=== PATIENT | female | born 1975 | race Caucasian/White ===

== ENCOUNTER 2024-09-28 12:05 | Inpatient (IN) ==
--- NOTE | 2024-09-28 12:22 | Emergency Department Note ---
HPI - General Adult General Chief complaint: General Complaint Stated complaint: EAR PAIN, TOOTHACHE, CHEST PAINX1 DAY Time Seen by Provider: 09/28/24 12:12 Source: patient Mode of arrival: walk-in Limitations: no limitations History of Present Illness HPI narrative: This is a 49 year old female patient that presents to the ER with c/o substernal chest tightness, dizziness, cough and lower tooth pain. Patient states she has been under a lot of stress at home. Patient describes her chest pain as tightness that is there constantly. Patient denies any SOB, back pain, abdominal pain, numbness, tingling, weakness or N/V/D Location: Reports chest Radiation: Reports non-radiation Severity: mild Quality: Reports other (tightness) Pain Consistency: Reports constant Relieving factors: Reports none Exacerbating factors: Reports none Associated symptoms: Reports chest pain and cough Treatments prior to arrival: Reports none Related Data Previous Rx's Medication Instructions Recorded azithromycin 250 mg tablet See Rx Instructions PO .COMPLEX 06/07/24 (Zithromax Z-Jair) sinusitis #6 tabs ondansetron 4 mg disintegrating 4 mg PO Q6H PRN nausea and 06/19/24 tablet vomiting #10 tabs tamsulosin 0.4 mg capsule (Flomax) 0.4 mg PO DAILY renal stone #30 06/19/24 caps Allergies Allergy/AdvReac Type Severity Reaction Status Date / Time codeine Allergy Mild Verified 09/28/24 12:16 iodine Allergy Mild Verified 09/28/24 12:16 povidone-iodine (From Allergy Mild Verified 09/28/24 12:16 Betadine) Review of Systems Status of ROS 10 or more systems reviewed and unremark able except as noted in history and below Constitutional Denies: fever, chills, change in weight, fatigue, malaise or night sweats Eyes Denies: change in vision, blurry vision, blind spots or light sensitivity Ears, nose, mouth, and throat Reports: mouth pain (lower tooth pain); Denies: throat pain, neck pain, throat swelling, difficulty swallowing or hoarseness Cardiovascular Reports: chest pain; Denies: palpitations, edema, swelling of feet/ankles, lightheadedness or shortness of breath with exertion Respiratory Denies: shortness of breath, cough, wheezing, stridor, pain on inspiration, change in phlegm color or coughing up blood Gastrointestinal Denies: abdominal pain, nausea, vomiting, coffee grounds in vomit, heartburn, diarrhea or constipation Genitourinary Denies: painful urination, urinary frequency, urinary urgency, urinary incontinence, blood in urine or difficulty voiding Musculoskeletal Denies: back pain, neck pain, extremity pain, extremity swelling, joint pain or limited range of motion Integumentary/Breast Denies: rash, itching, redness, skin pain, skin tenderness, skin swelling or sores Neurological Denies: headache, numbness in extremities, weakness in extremities, lack of coordination or dizziness Psychiatric Denies: anxiety, mood swings, panic attacks, change in sleep pattern, hopelessness or loss of interest Endocrine Denies: excessive urination, excessive thirst, fatigue, cold intolerance or excessive sweating Hematologic/Lymphatic Denies: easy bruising, easy bleeding or enlarged lymph nodes Allergic/Immunologic Denies: hives, throat swelling, tongue swelling or facial swelling PFSH PFSH Medical History (Updated 06/19/24 @ 22:00 by Josie Melara DO) Depression Hyperlipidemia Migraines Glaucoma Kidney stone GERD (gastroesophageal reflux disease) Surgical History (Updated 06/19/24 @ 19:39 by Concha Aly RN) H/O lithotripsy H/O: hysterectomy Social History Smoking status: current every day smoker What tobacco products do you use: cigarettes Cigarettes per day: 10 Within the past year, how often did you have a drink containing alcohol: monthly or less Within the past year, how often did you have six or more drinks on one occasion: never What is your current living situation: I presently have a place to live Problems where you live: no known problems In the past 12 months, utilities in danger of being shut off: no In past 12 months, lack of transportation kept you from medical appts, meetings, work, or getting things needed for daily living: No How hard is it for you to pay for the very basics like food, housing, medical care, and heating: hard Past 12 mos, fear food will run out before able to buy more: sometimes true In past 12 months, food didn't last until money to buy more: sometimes true Are you following a diet prescribed by a doctor: No Are you following a special diet: No Known occupational exposures/hazards: No Exam Constitutional: normal general appearance, no apparent distress and average body habitus Vital Signs - 24 hr 09/28/24 12:08 09/28/24 12:29 09/28/24 12:29 Temperature 97.4 F L Pulse Rate 93 H 86 94 H Respiratory Rate 20 Blood Pressure 109/64 94/67 100/71 Pulse Oximetry 96 Oxygen Delivery Me thod Room Air 09/28/24 12:30 Temperature Pulse Rate 95 H Respiratory Rate Blood Pressure 109/72 [facility]: normocephalic, head/scalp atraumatic, hearing grossly normal bilaterally, external ears normal, EACs normal, TMs normal bilaterally, nasal mucous membranes normal, external nose normal, oral mucous membranes normal, oropharynx normal and dentition abnormal (lower front tooth) (caries) Eyes: PERRL, EOMs intact bilaterally, conjunctivae normal and no scleral icterus Neck/C-Spine: visual inspection normal and trachea midline Lymph: no lymphadenopathy noted Chest: inspection of chest normal Respiratory: breath sounds equal bilaterally, normal respiratory effort, clear to auscultation bilaterally, no wheezes, no rales, no retractions, no use of accessory muscles and chest percussion normal Cardiovascular: normal heart rate noted, regular rhythm noted, no gallop, no rub, no murmur, no JVD, no clicks, peripheral pulses 2+ throughout and no additional abnormal heart sounds Gastrointestinal: abdomen normal to inspection, abdomen soft to palpation, nontender to palpation, nontender to percussion, nondistended, normoactive bowel sounds, no hepatosplenomegaly, no masses, no pulsatile mass, no ascites and no hernia Genitourinary: no CVA tenderness Back/Pelvis: spine normal to inspection Extremities: normal to inspection, normal to palpation, no tenderness, full ROM, no joint enlargement and no deformity Neurology: teacher counselor II-XII intact, no movement abnormality noted, no focal motor deficit noted, no sensory deficits noted, gait normal, speech normal, coordination normal, no pronator drift noted, no fasciculations noted and GCS normal Psychiatry: mental status grossly normal, oriented x3, thought process normal, cooperative and affect normal Skin: skin color normal and no rash Course Course Hospital Course: 1324: VSS, no s/s of acute distress noted, due to chest pain, risk factors, medical history will admit patient to the hospital Vital Signs Vital signs: Vital Signs Temperature 97.4 F L 09/28/24 12:08 Pulse Rate 93 H 09/28/24 12:08 Respiratory Rate 20 09/28/24 12:08 Blood Pressure 109/64 09/28/24 12:08 Pulse Oximetry 96 09/28/24 12:08 Oxygen Delivery Method Room Air 09/28/24 12:08 Temperature 97.4 F L 09/28/24 12:08 Pulse Rate 95 H 09/28/24 12:30 Respiratory Rate 20 09/28/24 12:08 Blood Pressure 109/72 09/28/24 12:30 Pulse Oximetry 96 09/28/24 12:08 Oxygen Delivery Method Room Air 09/28/24 12:08 Medical Decision Making Differential Diagnosis Differential Diagnosis: viral illness Medical Records Medical records reviewed: Yes I reviewed the patient's medical records Lab Data Lab results reviewed: Yes I reviewed the patient's lab results Labs: Lab Results 09/28/24 Range/Units 12:25 WBC 6.2 (4.3-9.3) K/uL RBC 4.9 (4.00-5.50) M/uL Hgb 15.4 (12.5-15.8) gm/dL Hct 44.6 (35.9-46.7) % MCV 90.6 (81.0-93.7) fl MCH 31.2 (27.6-32.2) pg MCHC 34.5 (33.1-35.3) g/dl RDW 12.4 (11.4-14.2) % Plt Count 276 (152-353) K/uL MPV 7.6 (6.9-10.8) fl Gran % 57.3 (47.8-71.3) % Lymph % (Auto) 34.9 (20.0-43.0) % [place] % (Auto) 5.7 (3.6-9.8) % Eos % (Auto) 1.5 (0.4-2.8) % Baso % (Auto) 0.6 (0.1-0.85) Lymph # (Auto) 2.2 (1.1-3.1) [place] # (Auto) 0.4 L (1.1-3.1) Eos # (Auto) 0.1 (0.0-0.2) Baso # (Auto) 0.0 (0.0-0.1) Absolute Gran (auto) 3.6 (2.3-6.0) Sodium 137 (136-145) mmol/L Potassium 3.8 (3.6-5.2) mmol/L Chloride 103.0 (98-107) mmol/L Carbon Dioxide 25 (21-32) mmol/L Anion Gap 9.0 (4-14) mEq/L BUN 13 (7-18) mg/dL Creatinine 0.8 (0.6-1.3) mg/dL Estimated GFR 90.3 (>59.9) Glucose 111 H (70-110) mg/dL Calcium 9.4 (8.5-10.1) mg/dL Total Bilirubin 0.34 (0.0-1.0) mg/dL AST 12 L (15-37) U/L ALT 9 L (30-65) U/L Alkaline Phosphatase 100 (50-136) U/L Troponin I High Sens <4.00 L (4.0-60.4) ng/L Total Protein 7.3 (6.4-8.2) g/dL Albumin 3.5 (3.4-5.0) g/dL Influenza Type A Ag Negative (Negative) Influenza Type B Ag Negative (Negative) Imaging Data Chest x-ray: Attestation: I have reviewed the pertinent imaging results. ECG Data Attestation: I have reviewed the pertinent ECG results. Discharge Plan Discharge Patient Disposition: Admitted As Inpatient Condition: Stable Chief Complaint: General Complaint Clinical Impression: Pneumonia, Chest pain Prescriptions: No Action azithromycin [Zithromax Z-Jair] 250 mg tablet See Rx Instructions .ROUTE .COMPLEX Qty: 6 0RF Rx Instructions: For 250 mg dose pack: take 500 mg today (day 1), then 250 mg for 4 days (days 2-5) tamsulosin [Flomax] 0.4 mg capsule 0.4 mg PO DAILY Qty: 30 0RF ondansetron 4 mg tablet,disintegrating 4 mg PO Q6H PRN (Reason: nausea and vomiting) Qty: 10 0RF Print Language: Bulgarian Referrals: Darshana Melo [Primary Care Provider] - Time of Disposition: 13:26
[2024-09-28 12:31] LABS: Basophils%(Percent) Auto 0.6 (0.1-0.85); Eosinophils#(Absolute)Auto 0.1 (0.0-0.2); Eosinophils%(Percent) Auto 1.5 % (0.4-2.8); Granulocytes % - Auto 57.3 % (47.8-71.3); Granulocytes#(Absolute)- Auto 3.6 (2.3-6.0); Hematocrit 44.6 % (35.9-46.7); Mean Corpuscular Volume 90.6 fl (81.0-93.7); Monocytes #(Absolute)- Auto 0.4 (1.1-3.1); Monocytes %(Percent)- Auto 5.7 % (3.6-9.8); Platelet Count 276 K/uL (152-353); White Blood Count 6.2 K/uL (4.3-9.3)
[2024-09-28 12:39] LABS: Potassium 3.8 mmol/L (3.6-5.2)
[2024-09-28] MEDS ORDERED: 0.9 % SODIUM CHLORIDE MB+ 50 ML IV ONE (13:20)
[2024-09-28] MEDS ORDERED: CEFTRIAXONE SODIUM 1 GM VIAL ONE (13:21)
[2024-09-28] MEDS ORDERED: ASPIRIN 81 MG TAB.CHEW ONE (13:21)
[2024-09-28] MEDS ORDERED: 0.9 % SODIUM CHLORIDE 250 ML IV ONE (13:21)
[2024-09-28] MEDS ORDERED: AZITHROMYCIN 500 MG VIAL ONE (13:21)
[2024-09-28] MEDS: CEFTRIAXONE SODIUM 1 GM in 0.9 % SODIUM CHLORIDE MB+ 50 ML IV STA (13:22)
[2024-09-28] MEDS: ASPIRIN 81 MG TAB.CHEW PO ONE (13:22)
[2024-09-28] MEDS: AZITHROMYCIN 500 MG 500 MG in 0.9 % SODIUM CHLORIDE 250 ML IV ONE (13:22)
[2024-09-28] MEDS: 0.9 % SODIUM CHLORIDE 1000 ML 1,000 ML IV STA (13:35)
[2024-09-28] MEDS ORDERED: ACETAMINOPHEN 500 MG TABLET PO PRN (16:05)
[2024-09-28] MEDS ORDERED: MAGNESIUM, ALUMINUM HYDROXIDE 30 ML ORAL.SUSP PO PRN (16:05)
[2024-09-28] MEDS ORDERED: bisacodyL 10 MG SUPP.RECT PR PRN (16:05)
[2024-09-28] MEDS: 0.9 % SODIUM CHLORIDE 1000 ML 1,000 ML IV SCH (17:06)
[2024-09-28] MEDS: KETOROLAC 30 MG/ML INJ VIAL IVP PRN (17:50)
[2024-09-28] MEDS: LEVOFLOXACIN/D5W 750 MG/150 ML 750 MG/150 ML PIGGYBACK IV SCH (17:51)
[2024-09-28] MEDS: METHYLPREDNISOLONE SOD SUCC/PF 125 MG/2 ML VIAL IVP ONE (17:51)
[2024-09-28] MEDS: IPRATROPIUM/ALBUTEROL SULFATE 3 ML AMPUL.NEB INH SCH (19:35)
[2024-09-29 06:04] LABS: Basophils%(Percent) Auto 0.2 (0.1-0.85); Granulocytes % - Auto 74.3 % (47.8-71.3); Granulocytes#(Absolute)- Auto 3.1 (2.3-6.0); Hematocrit 40.8 % (35.9-46.7); Mean Corpuscular Volume 90.5 fl (81.0-93.7); Monocytes #(Absolute)- Auto 0.3 (1.1-3.1); Monocytes %(Percent)- Auto 6.4 % (3.6-9.8); Platelet Count 264 K/uL (152-353); White Blood Count 4.2 K/uL (4.3-9.3)
[2024-09-29 06:16] LABS: Potassium 3.7 mmol/L (3.6-5.2)
--- NOTE | 2024-09-29 07:46 | Discharge Summary ---
DS: Providers Provider Date of admission: 09/28/24 13:52 Primary care physician: Darshana Melo Admitting clinician: Ewa Dao Attending physician on admission: Darío Owens Attending physician on discharge: Darío Owens Discharging clinician: Darío Owens Anticipated date of discharge: 09/29/24 DS: Summary Hospital Course Hospital Course: 1324: VSS, no s/s of acute distress noted, due to chest pain, risk factors, medical history will admit patient to the hospital Time Spent with Patient Time attestation: Total time spent providing and/or coordinating discharge services: Exam Constitutional: Vital Signs - 24 hr 09/28/24 12:08 09/28/24 12:29 09/28/24 12:29 Temperature 97.4 F L Pulse Rate 93 H 86 94 H Pulse Rate [Left] Respiratory Rate 20 Blood Pressure 109/64 94/67 100/71 Blood Pressure [Le ft Arm] Pulse Oximetry 96 [facility] 09/28/24 12:30 09/28/24 13:30 09/28/24 14:00 Temperature 99.4 F Pulse Rate 95 H 81 78 Pulse Rate [Left] Respiratory Rate 18 Blood Pressure 109/72 92/60 94/61 Blood Pressure [Le ft Arm] Pulse Oximetry 93 L [facility] 09/28/24 14:30 09/28/24 15:00 09/28/24 15:30 Temperature Pulse Rate 86 89 87 Pulse Rate [Left] Respiratory Rate Blood Pressure 94/62 96/66 99/68 Blood Pressure [Le ft Arm] Pulse Oximetry [facility] 09/28/24 15:45 09/28/24 16:05 09/28/24 16:06 Temperature 98.2 F Pulse Rate 87 Pulse Rate [Left] 71 71 Respiratory Rate 20 20 Blood Pressure 99/68 Blood Pressure [Le ft Arm] 105/76 Pulse Oximetry 98 98 [facility] Room Air 09/28/24 19:39 09/28/24 20:00 09/28/24 23:50 Temperature 97.8 F Pulse Rate Pulse Rate [Left] 88 Respiratory Rate 17 Blood Pressure Blood Pressure [Le ft Arm] 111/73 Pulse Oximetry 98 97 96 [facility] 09/28/24 23:56 09/29/24 04:00 Temperature 98.0 F 97.5 F L Pulse Rate Pulse Rate [Left] 91 H 91 H Respiratory Rate 19 18 Blood Pressure Blood Pressure [Le ft Arm] 114/71 107/68 Pulse Oximetry 94 L 96 Oxygen Delivery Me thod Room Air Room Air DS: Data Data Completed and Pending Labs on day of discharge: Labs from last 24 hours 09/29/24 09/28/24 05:28 12:25 WBC 4.2 L 6.2 RBC 4.5 4.9 Hgb 14.0 15.4 Hct 40.8 44.6 MCV 90.5 90.6 MCH 31.1 31.2 MCHC 34.3 34.5 RDW 12.4 12.4 Plt Count 264 276 MPV 8.0 7.6 Gran % 74.3 H 57.3 Lymph % (Auto) 19.1 L 34.9 [place] % (Auto) 6.4 5.7 Eos % (Auto) 0.0 L 1.5 Baso % (Auto) 0.2 0.6 Lymph # (Auto) 0.8 L 2.2 [place] # (Auto) 0.3 L 0.4 L Eos # (Auto) 0.0 0.1 Baso # (Auto) 0.0 0.0 Absolute Gran (auto) 3.1 3.6 Sodium 141 137 Potassium 3.7 3.8 Chloride 109.0 H 103.0 Carbon Dioxide 21 25 Anion Gap 11.0 9.0 BUN 11 13 Creatinine 0.7 0.8 Estimated GFR 106.0 90.3 Glucose 160 H 111 H Calcium 8.8 9.4 Total Bilirubin 0.16 0.34 AST 12 L 12 L ALT 10 L 9 L Alkaline Phosphatase 86 100 Troponin I High Sens <4.00 L Total Protein 6.5 7.3 Albumin 3.0 L 3.5 Influenza Type A Ag Negative Influenza Type B Ag Negative Discharge Plan Discharge Disposition: Left Against Medical Advice Condition: Stable Hospital Course: 1324: VSS, no s/s of acute distress noted, due to chest pain, risk factors, medical history will admit patient to the hospital Interventions: MED/SURG & ICU Observation Charge Sheet Last Done: 09/29/24 05:50 Discharge Date/Time: 09/29/24 11:44
[2024-09-29 08:25] VITALS: BP 122/71; PULSE 70; RESP 20; TEMP 98
[2024-09-29] MEDS ORDERED: CEFTRIAXONE SODIUM 1 GM in 0.9 % SODIUM CHLORIDE MB+ 50 ML IV SCH (09:00)
[2024-09-29] MEDS ORDERED: AZITHROMYCIN 500 MG 500 MG in 0.9 % SODIUM CHLORIDE 250 ML IV SCH (09:00)
--- NOTE | 2024-09-29 13:44 | Short Stay Summary ---
H&P: HPI History of Present Illness Chief complaint: chest pain, pneumonia Narrative: Pt to ER with worsening CP. Reports CP started suddenly, but has been having chest congestion and cough for ~2 weeks. Does smoke daily. ER work-up negative for cardiac findings, but CXR consistent with b/l CAP. Did meet sepsis criteria with tachy/tachy and CAP. Review of Systems Status of ROS 10 or more systems reviewed and unremark able except as noted in history and below Constitutional Denies: fever, chills, change in weight, fatigue, malaise or night sweats Eyes Denies: change in vision, blurry vision, blind spots or light sensitivity Ears, nose, mouth, and throat Reports: mouth pain (lower tooth pain); Denies: throat pain, neck pain, throat swelling, difficulty swallowing or hoarseness Cardiovascular Reports: chest pain; Denies: palpitations, edema, swelling of feet/ankles, lightheadedness or shortness of breath with exertion Respiratory Denies: shortness of breath, cough, wheezing, stridor, pain on inspiration, change in phlegm color or coughing up blood Gastrointestinal Denies: abdominal pain, nausea, vomiting, coffee grounds in vomit, heartburn, diarrhea, constipation or difficulty swallowing Genitourinary Denies: painful urination, urinary frequency, urinary urgency, urinary incontinence, blood in urine or difficulty voiding Musculoskeletal Denies: back pain, neck pain, extremity pain, extremity swelling, joint pain or limited range of motion Integumentary/Breast Denies: rash, itching, redness, skin pain, skin tenderness, skin swelling or sores Neurological Denies: headache, numbness in extremities, weakness in extremities, lack of coordination or dizziness Psychiatric Denies: anxiety, mood swings, panic attacks, change in sleep pattern, hopelessness or loss of interest Endocrine Denies: excessive urination, excessive thirst, fatigue, cold intolerance or excessive sweating Hematologic/Lymphatic Denies: easy bruising, easy bleeding or enlarged lymph nodes Allergic/Immunologic Denies: hives, throat swelling, tongue swelling, facial swelling or wheezing [facility] Medical History (Updated 09/29/24 @ 13:46 by Darío Owens MD) Depression Hyperlipidemia Migraines Glaucoma Kidney stone GERD (gastroesophageal reflux disease) Surgical History (Updated 06/19/24 @ 19:39 by Concha Aly RN) H/O lithotripsy H/O: hysterectomy Social History Smoking status: current every day smoker What tobacco products do you use: cigarettes Cigarettes per day: 10 Within the past year, how often did you have a drink containing alcohol: monthly or less Within the past year, how often did you have six or more drinks on one occasion: never What is your current living situation: I presently have a place to live Problems where you live: no known problems In the past 12 months, utilities in danger of being shut off: no In past 12 months, lack of transportation kept you from medical appts, meetings, work, or getting things needed for daily living: No How hard is it for you to pay for the very basics like food, housing, medical care, and heating: hard Past 12 mos, fear food will run out before able to buy more: sometimes true In past 12 months, food didn't last until money to buy more: sometimes true Are you following a diet prescribed by a doctor: No Are you following a special diet: No Known occupational exposures/hazards: No Highest level of school completed/degree received: decline to answer Meds Home Medications and Allergies Home Medications Medication Instructions Recorded Confirmed Type bimatoprost 0.01 % eye drops 1 drp ophthalmic (eye) BEDTIME 09/29/24 09/29/24 History (Esteban) pantoprazole 20 mg tablet,delayed 20 mg PO DAILY 09/29/24 09/29/24 History release simvastatin 40 mg tablet 40 mg PO BEDTIME 09/29/24 09/29/24 History sumatriptan succinate 25 mg tablet 25 mg PO Q2H PRN migraine headache 09/29/24 09/29/24 History topiramate 100 mg tablet 150 mg PO BID 09/29/24 09/29/24 History venlafaxine 75 mg capsule,extended 75 mg PO DAILY 09/29/24 09/29/24 History release 24 hr Allergies Allergy/AdvReac Type Severity Reaction Status Date / Time codeine Allergy Mild Verified 09/28/24 12:16 iodine Allergy Mild Verified 09/28/24 12:16 povidone-iodine (From Allergy Mild Verified 09/28/24 12:16 Betadine) adhesive tape AdvReac Unknown Verified 09/28/24 17:44 Exam Constitutional: abnormal general appearance (appears older than stated age), no apparent distress, average body habitus, no limitations and alert Vital Signs - 24 hr 09/28/24 14:00 09/28/24 14:30 09/28/24 15:00 Temperature Pulse Rate 78 86 89 Pulse Rate [Left] Respiratory Rate Blood Pressure 94/61 94/62 96/66 Blood Pressure [Le ft Arm] Pulse Oximetry Oxygen Delivery [facility] thod 09/28/24 15:30 09/28/24 15:45 09/28/24 16:05 Temperature 98.2 F Pulse Rate 87 87 Pulse Rate [Left] 71 Respiratory Rate 20 Blood Pressure 99/68 99/68 Blood Pressure [Le ft Arm] 105/76 Pulse Oximetry 98 [facility] 09/28/24 16:06 09/28/24 19:39 09/28/24 20:00 Temperature 97.8 F Pulse Rate Pulse Rate [Left] 71 88 Respiratory Rate 20 17 Blood Pressure Blood Pressure [Le ft Arm] 111/73 Pulse Oximetry 98 98 97 Oxygen Delivery [facility] Room Air Room Air 09/28/24 23:50 09/28/24 23:56 09/29/24 04:00 Temperature 98.0 F 97.5 F L Pulse Rate Pulse Rate [Left] 91 H 91 H Respiratory Rate 19 18 Blood Pressure Blood Pressure [Le ft Arm] 114/71 107/68 Pulse Oximetry 96 94 L 96 Oxygen Delivery [facility] Room Air Room Air 09/29/24 08:00 09/29/24 11:25 Temperature 98.0 F Pulse Rate Pulse Rate [Left] 70 Respiratory Rate 20 Blood Pressure Blood Pressure [Le ft Arm] 122/71 Pulse Oximetry 97 98 Oxygen Delivery [facility] Room Air HENMT: normocephalic, head/scalp atraumatic, hearing grossly normal bilaterally and external ears normal Eyes: PERRL, EOMs intact bilaterally and conjunctivae normal Neck/C-Spine: visual inspection normal, trachea midline and cervical full ROM noted Respiratory: breath sounds equal bilaterally, normal respiratory effort and wheezing noted (expiratory wheezes) and (scattered wheezes) Cardiovascular: normal heart rate noted, regular rhythm noted and no murmur Gastrointestinal: abdomen soft to palpation, nontender to palpation, nondistended and normoactive bowel sounds Back/Pelvis: thoracic spine ROM normal and lumbar spine ROM normal Neurology: high reach operator II-XII intact, no focal motor deficit noted, gait normal, speech normal, coordination normal, no fasciculations noted and GCS normal Psychiatry: mental status grossly normal, oriented x3, thought process normal, cooperative, affect normal, psychomotor activity normal and memory normal Assessment and Plan Assessment and Plan (1) Sepsis: Qualifiers: Sepsis type: sepsis due to unspecified organism Sepsis acute organ dysfunction status: without acute organ dysfunction Qualified Code(s): A41.9 - Sepsis, unspecified organism Code(s): A41.9 - Sepsis, unspecified organism (2) Community acquired pneumonia: Qualifiers: Laterality: left Lung location: lower lobe of lung Qualified Code(s): J18.9 - Pneumonia, unspecified organism Code(s): J18.9 - Pneumonia, unspecified organism Plan Admitted on steroids, abx, and nebs. Results Labs Labs: CBC WBC 4.2 K/uL (4.3-9.3) L 09/29/24 05:28 RBC 4.5 M/uL (4.00-5.50) 09/29/24 05:28 Hgb 14.0 gm/dL (12.5-15.8) 09/29/24 05:28 Hct 40.8 % (35.9-46.7) 09/29/24 05:28 MCV 90.5 fl (81.0-93.7) 09/29/24 05:28 MCH 31.1 pg (27.6-32.2) 09/29/24 05:28 MCHC 34.3 g/dl (33.1-35.3) 09/29/24 05:28 RDW 12.4 % (11.4-14.2) 09/29/24 05:28 Plt Count 264 K/uL (152-353) 09/29/24 05:28 MPV 8.0 fl (6.9-10.8) 09/29/24 05:28 Gran % 74.3 % (47.8-71.3) H 09/29/24 05:28 Lymph % (Auto) 19.1 % (20.0-43.0) L 09/29/24 05:28 [place] % (Auto) 6.4 % (3.6-9.8) 09/29/24 05:28 Eos % (Auto) 0.0 % (0.4-2.8) L 09/29/24 05:28 Baso % (Auto) 0.2 (0.1-0.85) 09/29/24 05:28 Lymph # (Auto) 0.8 (1.1-3.1) L 09/29/24 05:28 [place] # (Auto) 0.3 (1.1-3.1) L 09/29/24 05:28 Eos # (Auto) 0.0 (0.0-0.2) 09/29/24 05:28 Baso # (Auto) 0.0 (0.0-0.1) 09/29/24 05:28 Absolute Gran (auto) 3.1 (2.3-6.0) 09/29/24 05:28 BMP Sodium 141 mmol/L (136-145) 09/29/24 05:28 Potassium 3.7 mmol/L (3.6-5.2) 09/29/24 05:28 Chloride 109.0 mmol/L (98-107) H 09/29/24 05:28 Carbon Dioxide 21 mmol/L (21-32) 09/29/24 05:28 Anion Gap 11.0 mEq/L (4-14) 09/29/24 05:28 BUN 11 mg/dL (7-18) 09/29/24 05:28 Creatinine 0.7 mg/dL (0.6-1.3) 09/29/24 05:28 Estimated GFR 106.0 (>59.9) 09/29/24 05:28 Glucose 160 mg/dL (70-110) H 09/29/24 05:28 Calcium 8.8 mg/dL (8.5-10.1) 09/29/24 05:28 Total Bilirubin 0.16 mg/dL (0.0-1.0) 09/29/24 05:28 AST 12 U/L (15-37) L 09/29/24 05:28 ALT 10 U/L (30-65) L 09/29/24 05:28 Alkaline Phosphatase 86 U/L (50-136) 09/29/24 05:28 Total Protein 6.5 g/dL (6.4-8.2) 09/29/24 05:28 Albumin 3.0 g/dL (3.4-5.0) L 09/29/24 05:28 Cardiac Enzymes Troponin I High Sens <4.00 ng/L (4.0-60.4) L 09/28/24 12:25 Liver Function Total Bilirubin 0.16 mg/dL (0.0-1.0) 09/29/24 05:28 AST 12 U/L (15-37) L 09/29/24 05:28 ALT 10 U/L (30-65) L 09/29/24 05:28 Alkaline Phosphatase 86 U/L (50-136) 09/29/24 05:28 Total Protein 6.5 g/dL (6.4-8.2) 09/29/24 05:28 Albumin 3.0 g/dL (3.4-5.0) L 09/29/24 05:28 DS: Providers Provider Date of admission: 09/28/24 13:52 Primary care physician: Darshana Melo Admitting clinician: Ewa Dao Attending physician on admission: Darío Owens Attending physician on discharge: Darío Owens Discharging clinician: Darío Owens Anticipated date of discharge: 09/29/24 DS: Summary Hospital Course Hospital Course: Admitted due to sepsis from CAP. Pt responded well to IV abx, steroids, and nebs. On day of discharge, pt elected to leave early/AMA to be able to smoke. She was not requiring O2 and vitals had stabilized. She is felt stable to go home. Steroids and abx recommended after F/U with PCP within 3 days. Status at Discharge Functional status at discharge: independent ambulation Overall status at discharge: patient is progressing back to baseline Time Spent with Patient Time attestation: Total time spent providing and/or coordinating discharge services: Discharge Plan Discharge Disposition: Left Against Medical Advice Condition: Stable Hospital Course: Admitted due to sepsis from CAP. Pt responded well to IV abx, steroids, and nebs. On day of discharge, pt elected to leave early/AMA to be able to smoke. She was not requiring O2 and vitals had stabilized. She is felt stable to go home. Steroids and abx recommended after F/U with PCP within 3 days. Interventions: MED/SURG & ICU Observation Charge Sheet Last Done: 09/29/24 05:50 Discharge Date/Time: 09/29/24 11:44
== END 2024-09-29 11:44 | disposition left against medical advice (07) | DRG 871 ==
LOC: ED 12:05 → MS 13:52
PROVIDERS: ADMIT Family Medicine; ATTEND Family Medicine
DX: R42 Dizziness and giddiness; A41.9 Sepsis, unspecified organism; K08.89 Other specified disorders of teeth and supporting structures; R05.9 Cough, unspecified; R07.89 Other chest pain; Z72.0 Tobacco use; R09.89 Other specified symptoms and signs involving the circulatory and respiratory systems; J18.9 Pneumonia, unspecified organism; Z53.29 Procedure and treatment not carried out because of patient's decision for other reasons